=== PATIENT | male | born 1995 | race African-American/Black ===

== ENCOUNTER 2023-08-21 01:10 | Emergency (ER) | payer OTHER ==
[~2023-08-21] VITALS: Ht 190.5 cm; Wt 90.9 kg
[2023-08-21] MEDS ORDERED: TOPI100T37 PO (01:30)
[2023-08-21] MEDS ORDERED: EMTR1TAB53 PO (01:30)
[2023-08-21 01:41] VITALS: TEMP 98.7
[2023-08-21 02:53] VITALS: BP 128/82; PULSE 79; RESP 16
== END 2023-08-21 03:55 | disposition home or self-care (01) ==
LOC: EMS 01:10
DX: S10.0XXA Contusion of throat, initial encounter (principal); S10.11XA Abrasion of throat, initial encounter; Z69.11 Encounter for mental health services for victim of spousal or partner abuse; Z88.8 Allergy status to other drugs, medicaments and biological substances; X58.XXXA Exposure to other specified factors, initial encounter; Y93.89 Activity, other specified; Y92.89 Other specified places as the place of occurrence of the external cause; Y99.8 Other external cause status
CPT/HCPCS: 99283; Z7502

== ENCOUNTER → 2024-01-26 | Emergency (ER) | payer OTHER ==
[~2024-01-26] VITALS: Ht 190.5 cm; Wt 100.0 kg
[~2024-01-26] MED LIST: EMTR1TAB53 PO; TOPI100T37 PO
[2024-01-26 19:30] VITALS: BP 132/79; PULSE 93; RESP 20; TEMP 98.2
== END | disposition still patient (30) ==
LOC: EMS 19:01
DX: K62.89 Other specified diseases of anus and rectum (principal); Z53.21 Procedure and treatment not carried out due to patient leaving prior to being seen by health care provider